=== PATIENT | male | born 1990 ===

== ENCOUNTER 2018-07-11 19:28 | Emergency (ER) | payer OTHER ==
[2018-07-11 19:36] VITALS: BP 134/79; PULSE 77; RESP 16; TEMP 98.1; O2SAT 97
--- NOTE | 2018-07-11 19:51 | ED PDOC ---
HPI: Eye Injury/Pain Time Seen by Provider: 07/11/18 19:35 Chief Complaint (Nursing): Eye Problem History Per: Patient Additional Complaint(s): Pt. states for the past 2-3 days he's had a painful swelling to the L lower eyelid. Denies trauma, hx of DM, contact lens use, fever. Past Medical History Reviewed: Historical Data, Nursing Documentation, Vital Signs Vital Signs: Last Vital Signs Temp 98.1 F 07/11/18 19:33 Pulse 77 07/11/18 19:33 Resp 16 07/11/18 19:33 BP 134/79 07/11/18 19:33 Pulse Ox 97 07/11/18 19:33 - Surgical History Surgical History: No Surg Hx - Family History Family History: States: No Known Family Hx - Immunization History Hx Tetanus Toxoid Vaccination: No Hx Influenza Vaccination: No Hx Pneumococcal Vaccination: No - Home Medications Home Medications: Ambulatory Orders Medication Instructions Recorded Acyclovir 1 tab PO 5XD #35 tablet 01/12/16 Ibuprofen 1 tab PO Q6H PRN #15 tablet 01/12/16 Silver Sulfadiazine 1% 50 gm 1 ea EXT BID #50 g 01/12/16 [Silvadene] Erythromycin 0.5% [Erythromycin 1 appl LEFTEYE Q6 #1 tube 07/11/18 0.5% Oint] - Allergies Allergies/Adverse Reactions: Allergies Allergy/AdvReac Type Severity Reaction Status Date / Time No Known Allergies Allergy Verified 07/11/18 19:33 Review of Systems ROS Statement: Except As Marked, All Systems Reviewed And Found Negative Eyes: Positive for: Eyelid Inflammation Physical Exam - Physical Exam Appears: Positive for: Well, Non-toxic, No Acute Distress Head Exam: Positive for: ATRAUMATIC, NORMAL INSPECTION, NORMOCEPHALIC Skin: Positive for: Normal Color, Warm. Negative for: Rash Eye Exam: Positive for: EOMI (without pain), PERRL, Periorbital swelling (L lower eyelid with erythematous papule and mild surrounding erythema). Negative for: Periorbital tenderness, Conjunctival injection (b/l) Neurologic/Psych: Positive for: Alert, Oriented (x3). Negative for: Aphasia, Facial Droop - ECG O2 Sat by Pulse Oximetry: 97 Disposition - Clinical Impression Clinical Impression: [facility] - Patient ED Disposition Is Patient to be Admitted: No - Disposition Referrals: [facility] [Outside] Carlos Calderon MD [Staff Provider] - Disposition: Routine/Home Disposition Time: 19:40 Condition: STABLE Additional Instructions: Apply warm compresses to affected area. Return to ED immediately if symptoms worsen or if fever develops. Follow up with [facility] or Dr. Calderon (director digital sales) for further evaluation. JAYLENE A JOSI LANGE, thank you for letting us take care of you today. Your provider was Kathi Buenrostro MD and you were treated for LT EYE IRRITATION. The emergency medical care you received today was directed at your acute symptoms. If you were prescribed any medication, please fill it and take as directed. It may take several days for your symptoms to resolve. Return to the Emergency Department if your symptoms worsen, do not improve, or if you have any other problems. Please contact your doctor or call one of the physicians/clinics you have been referred to that are listed on the Patient Visit Information form that is included in your discharge packet. Bring any paperwork you were given at discharge with you along with any medications you are taking to your follow up visit. Our treatment cannot replace ongoing medical care by a primary care provider outside of the emergency department. Thank you for allowing the [facility] team to be part of your care today. If you had an X-Ray or CT scan: A Radiologist will review the ED reading if any change in treatment is needed we will contact you. If you had a blood, urine, or wound culture: It will take several days for the results, if any change in treatment is needed we will contact you. If you had an STI test: It will take 48 hours for the results. Please call after 1 week if you have not heard back. Prescriptions: Erythromycin 0.5% [Erythromycin 0.5% Oint] 1 appl LEFTEYE Q6 #1 tube Instructions: Yanely ([facility]) Forms: [employer] (C[employer]) Print Language: ROMANIAN
== END 2018-07-11 19:55 | disposition home or self-care (01) ==
LOC: H.ER 19:28
DX: H00.016 Hordeolum externum left eye, unspecified eyelid (principal)